=== PATIENT | male | born 1995 | race African-American/Black ===

== ENCOUNTER 2017-03-26 10:54 | Emergency (ER) | payer SELFPAY ==
[~2017-03-26] VITALS: Ht 175.3 cm; Wt 69.0 kg
[2017-03-26 10:59] VITALS: BP 126/80
== END 2017-03-26 13:00 | disposition home or self-care (01) ==
LOC: ER 12:23
DX: J02.9 Acute pharyngitis, unspecified (principal); B34.9 Viral infection, unspecified; F17.210 Nicotine dependence, cigarettes, uncomplicated; F12.10 Cannabis abuse, uncomplicated; Z88.0 Allergy status to penicillin; Z88.3 Allergy status to other anti-infective agents; Z71.6 Tobacco abuse counseling
CPT/HCPCS: 99283; 99406

== ENCOUNTER 2019-06-24 08:38 | Emergency (ER) | payer MEDICAID ==
[~2019-06-24] VITALS: Ht 172.7 cm; Wt 61.0 kg
[2019-06-24] MEDS ORDERED: IBUPROFEN 600MG TABLET PO STA (10:19)
[2019-06-24 10:27] VITALS: BP 150/78
== END 2019-06-24 10:35 | disposition home or self-care (01) ==
LOC: ER 08:38
DX: S39.012A Strain of muscle, fascia and tendon of lower back, initial encounter (principal); F17.210 Nicotine dependence, cigarettes, uncomplicated; F12.10 Cannabis abuse, uncomplicated; Z88.0 Allergy status to penicillin; X50.0XXA Overexertion from strenuous movement or load, initial encounter; Y93.89 Activity, other specified; Y92.89 Other specified places as the place of occurrence of the external cause; Y99.8 Other external cause status
CPT/HCPCS: 99283

== ENCOUNTER 2020-10-25 09:58 | Emergency (ER) | payer MEDICAID ==
[~2020-10-25] VITALS: Ht 172.7 cm; Wt 74.0 kg
[2020-10-25 10:00] VITALS: BP 161/83
== END 2020-10-25 12:00 | disposition left against medical advice (07) ==
LOC: ER 09:58
DX: J06.9 Acute upper respiratory infection, unspecified (principal); F12.10 Cannabis abuse, uncomplicated; Z88.0 Allergy status to penicillin; Z88.1 Allergy status to other antibiotic agents
CPT/HCPCS: 99281

== ENCOUNTER 2024-04-26 13:20 | Emergency (ER) | payer SELFPAY ==
[~2024-04-26] VITALS: Ht 172.7 cm; Wt 67.0 kg
[2024-04-26 13:27] VITALS: O2SAT 98
[2024-04-26] MEDS: LIDOCAINE HCL 1% 20ML VIAL INFIL ONE (14:45)
[2024-04-26] MEDS ORDERED: CEPH500C2 MT (17:01)
[2024-04-26 17:15] VITALS: BP 127/86; PULSE 66; RESP 17; TEMP 36.61404; O2SAT 99
== END 2024-04-26 18:10 | disposition home or self-care (01) ==
LOC: ER 13:20
DX: L02.01 Cutaneous abscess of face (principal); L03.211 Cellulitis of face; F12.10 Cannabis abuse, uncomplicated; Z88.1 Allergy status to other antibiotic agents; Z88.0 Allergy status to penicillin
CPT/HCPCS: 10060; 99283; J3490; Z7610 ×2